=== PATIENT | female | born 1980 | race Asian ===

== ENCOUNTER → 2023-04-20 | Outpatient (CLI) | payer MEDICAID ==
[~2023-04-20] MED LIST: ALBUTEROL SULF 2.5 MG/0.5ML(0.5%) NEB SOLN ONE; ALPR0.5T
== END | disposition home or self-care (01) ==
LOC: RT 11:11
PROVIDERS: ATTEND Internal Medicine Pulmonary Disease
DX: Z77.120 Contact with and (suspected) exposure to mold (toxic) (principal)
CPT/HCPCS: 94060; 94727; 94729

== ENCOUNTER 2023-08-03 16:39 | Emergency (ER) | payer MEDICAID ==
[~2023-08-03] VITALS: Ht 154.9 cm; Wt 76.1 kg
[~2023-08-03 16:39] MED LIST changes: -ALBUTEROL SULF 2.5 MG/0.5ML(0.5%) NEB SOLN ONE
[2023-08-03 17:00] VITALS: BP 115/72; PULSE 88; RESP 18; O2SAT 96
== END 2023-08-03 20:39 | disposition left against medical advice (07) ==
LOC: ER 16:48
DX: F41.9 Anxiety disorder, unspecified (principal); R06.02 Shortness of breath; Z53.21 Procedure and treatment not carried out due to patient leaving prior to being seen by health care provider